=== PATIENT | male | born 1975 | race American Indian/Alaskan Native ===

== ENCOUNTER 2016-06-25 07:56 | Emergency (ER) | payer SELFPAY ==
[2016-06-25 08:08] VITALS: BP 104/65
--- NOTE | 2016-06-25 08:21 | Emergency Department Report ---
ED Headache HPI - General Chief Complaint: Headache Stated Complaint: HEADACHE/MIGRAINE Source: patient, family - History of Present Illness Initial Comments: 41-year-old male past medical history cerebral palsy spinal stenosis presents with complaint of 3 weeks of intermittent left-sided temporal headache waxing and waning throbbing. The patient is awake alert and oriented 3 not in acute distress states he does not currently have any headache, pain 1 out of 10 currently denies any photophobia and no phonophobia no fever no chills no nausea no vomiting no abdominal pain no chest pain no palpitations. Patient has spastic movement at baseline due to his cerebral palsy. Patient accompanied by mother. Patient states he does not currently have a primary medical doctor, emigrated here from [place] 4 years ago. Timing/Duration: 1 week, increasing, waxing and waning Quality: sharp Head Injury Location: temporal (left sided) Recent Head Trauma: no recent headache/trauma Associated Symptoms: denies symptoms Allergies/Adverse Reactions: Allergies No Known Allergies Allergy (Verified 09/24/15 23:48) Home Medications: Ambulatory Orders Acetaminophen [Acetaminophen TAB] 500 mg PO Q6HR PRN #30 tablet 06/25/16 ED Review of Systems ROS: Stated complaint: HEADACHE/MIGRAINE Other details as noted in HPI Constitutional: denies: chills, fever Eyes: denies: eye pain, eye discharge, vision change ENT: denies: ear pain, throat pain Respiratory: denies: cough, shortness of breath, wheezing Cardiovascular: denies: chest pain, palpitations Endocrine: no symptoms reported Gastrointestinal: denies: abdominal pain, nausea, diarrhea Genitourinary: denies: urgency, dysuria Musculoskeletal: as per HPI, back pain (history of back pain due to spinal stenosis), other (history of muscle spasticity due to cerebral palsy). denies: joint swelling, arthralgia Skin: denies: rash, lesions Neurological: denies: headache, weakness, paresthesias Psychiatric: denies: anxiety, depression Hematological/Lymphatic: denies: easy bleeding, easy bruising ED Past Medical Hx - Past Medical History Additional medical history: Spinal osteoarthritis - Surgical History Past Surgical History?: No - Social History Smoking Status: Never Smoker Substance Use Type: None - Medications Home Medications: Home Medications Medication Instructions Recorded Confirmed Last Taken Type Acetaminophen [Acetaminophen TAB] 500 mg PO Q6HR PRN #30 tablet 06/25/16 Unknown Rx ED Physical Exam - General Limitations: No Limitations General appearance: alert, in no apparent distress - Head Head exam: Present: atraumatic, normocephalic - Eye Eye exam: Present: normal appearance, PERRL, EOMI - ENT ENT exam: Present: mucous membranes moist - Neck Neck exam: Present: normal inspection - Respiratory Respiratory exam: Present: normal lung sounds bilaterally. Absent: respiratory distress - Cardiovascular Cardiovascular Exam: Present: regular rate, normal rhythm. Absent: systolic murmur, diastolic murmur, rubs, gallop - GI/Abdominal GI/Abdominal exam: Present: soft, normal bowel sounds - Rectal Rectal exam: Present: deferred - Extremities Exam Extremities exam: Present: normal inspection - Back Exam Back exam: Present: normal inspection, muscle spasm - Neurological Exam Neurological exam: Present: alert, oriented X3, CN II-XII intact, abnormal gait (patient has spastic gait due to cerebral palsy) - Psychiatric Psychiatric exam: Present: normal affect, normal mood - Skin Skin exam: Present: warm, dry, intact, normal color. Absent: rash ED Course Vital Signs 06/25/16 06/25/16 08:04 09:08 Temperature 97.8 F Pulse Rate 87 Respiratory 16 18 Rate Blood Pressure 104/65 O2 Sat by Pulse 100 Oximetry ED Medical Decision Making - Lab Data Result diagrams: 06/25/16 09:30 06/25/16 09:30 - Medical Decision Making A/P: Migraine headache 1-Tylenol when necessary for headache 2-will give patient a referral to primary doctor 3-CT noncontrast within normal limits no acute CVA no evidence of tumor/midline shift 4-case discussed with Dr. Lopez 5- no significant lab abnormalities Critical care attestation.: If time is entered above; I have spent that time in minutes in the direct care of this critically ill patient, excluding procedure time. ED Disposition Clinical Impression: Migraine headache Qualifiers: Migraine type: without aura Status migrainosus presence: without status migrainosus Intractability: not intractable Qualified Code(s): G43.009 - Migraine without aura, not intractable, without status migrainosus Disposition: DISCHARGED TO HOME OR SELFCARE Is pt being admited?: No Does the pt Need Aspirin: No Condition: Stable Instructions: Migraine Headache (ED), Acute Headache (ED) Prescriptions: Acetaminophen [Acetaminophen TAB] 500 mg PO Q6HR PRN #30 tablet PRN Reason: Headache Referrals: PRIMARY CARE, [Primary Care Provider] - 3-5 Days TALAT BONILLA JR, MD [Staff Physician] - 3-5 Days [facility] [Outside] - 3-5 Days Forms: Accompanied Note Time of Disposition: 10:22
--- NOTE | 2016-06-25 08:51 | Cat Scan Report ---
FINAL REPORT PROCEDURE: CT HEAD/BRAIN WO CON TECHNIQUE: Computerized tomography of the head was performed without contrast material. HISTORY: severe headache, pt has abnormal gait at baseline COMPARISON: No prior studies are available for comparison. FINDINGS: Skull and scalp: Normal. Paranasal sinuses: Hypoplastic right frontal sinus. Ventricles and subarachnoid spaces: Normal. Cerebrum: No evidence of hemorrhage, acute infarction or mass . Cerebellum and brainstem: No evidence of hemorrhage, acute infarction or mass. Vasculature: Normal. Comments: If symptoms and or concern persists recommend MRI and MRA with without IV gadolinium. IMPRESSION: No significant or acute intracranial pathology seen at this time
[2016-06-25] MEDS ORDERED: TYLENOL PO ONE (09:03)
[2016-06-25 10:03] LABS: Alanine Aminotransferase 10 units/L (7-56); Albumin 4.2 g/dL (3.9-5); Albumin/Globulin Ratio 1.4 %; Alkaline Phosphatase 86 units/L (35-129); Anion Gap 16 mmol/L; BUN/Creatinine Ratio 17.14; Bilirubin,Direct 0.3 mg/dL (0-0.2); Bilirubin,Indirect 1.9 mg/dL; Bilirubin,Total 2.2 mg/dL (0.1-1.2); Blood Urea Nitrogen 12 mg/dL (9-20); Carbon Dioxide 26 mmol/L (22-30); Chloride 106.4 mmol/L (98-107); Glucose 87 mg/dL (75-100); Potassium 4.8 mmol/L (3.6-5.0); Sodium 144 mmol/L (137-145); Total Protein 7.2 g/dL (6.3-8.2)
[2016-06-25 10:08] LABS: Hematocrit 39.7 % (35.5-45.6); Hemoglobin 13.1 gm/dl (11.8-15.2); Mean Corpuscular HGB Conc 33 % (32-34); Mean Corpuscular Hemoglobin 28 pg (28-32); Mean Corpuscular Volume 86 fl (84-94); Red Blood Count 4.63 M/mm3 (3.65-5.03); White Blood Count 7.3 K/mm3 (4.5-11.0)
[2016-06-25 10:18] LABS: Red Cell Distribution Width 21.5 % (13.2-15.2)
[2016-06-25 12:58] LABS: Platelet Count 213 K/mm3 (140-440)
[2016-06-25 13:03] LABS: Blastocytes % (Manual) 0 %
[2016-06-25 13:05] LABS: Anisocytosis 1+; Diff Status Complete; Elliptocytes 3+; Ovalocytes 2+; Platelet Estimate Consistent w Auto; Poikilocytosis 2+
== END 2016-06-25 10:40 | disposition home or self-care (01) ==
LOC: ED 07:56
DX: G43.009 Migraine without aura, not intractable, without status migrainosus (principal)
CPT/HCPCS: 36415; 70450; 80048; 80074; 85007; 85025; 99284